=== PATIENT | female | born 1980 | race Caucasian/White ===

== ENCOUNTER 2018-01-22 17:48 | Emergency (ER) | payer MEDICAID, OTHER ==
[~2018-01-22 17:48] MED LIST: CLIN-80 PO; HYDR-569 PO; LACRIL OP; ONDA4TAB12 PO; VALA100027 PO
== END 2018-01-22 20:18 | disposition left against medical advice (07) ==
LOC: ER 17:49
DX: M79.673 Pain in unspecified foot (principal); R51 Headache; Z53.21 Procedure and treatment not carried out due to patient leaving prior to being seen by health care provider

== ENCOUNTER 2018-03-15 21:14 | Emergency (ER) | payer MEDICAID ==
[~2018-03-15] VITALS: Ht 160 cm; Wt 75.0 kg
[2018-03-16 03:04] VITALS: BP 120/74
[2018-03-16] MEDS ORDERED: TETanus/Pertussis (Acell)/Diphther VAC/PF (Tdap-Adult) 0.5ml syringe IMVAC ONE (04:00)
== END 2018-03-16 05:10 | disposition home or self-care (01) ==
LOC: ER 21:15
DX: S90.812A Abrasion, left foot, initial encounter (principal); S90.811A Abrasion, right foot, initial encounter; J45.909 Unspecified asthma, uncomplicated; G89.29 Other chronic pain; Z23 Encounter for immunization; Z88.0 Allergy status to penicillin; Z88.8 Allergy status to other drugs, medicaments and biological substances; Z88.5 Allergy status to narcotic agent; Z79.899 Other long term (current) drug therapy; X58.XXXA Exposure to other specified factors, initial encounter; Y93.89 Activity, other specified; Y92.89 Other specified places as the place of occurrence of the external cause; Y99.8 Other external cause status
CPT/HCPCS: 90471; 90715; 99283